=== PATIENT | female | born 2000 | race Caucasian/White ===

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

== ENCOUNTER → 2019-09-02 | Outpatient (CLI) | payer OTHER ==
--- NOTE | 2019-09-02 09:18 | MR ---
EXAMINATION TYPE: MR lumbar spine wo con DATE OF EXAM: 09/02/2019 9:02 AM COMPARISON: NONE HISTORY: Lower Back Pain into Left Thigh started in April Multiplanar, MultiSpin echo imaging of the lumbar spine was performed. L1-L2: Normal disc appearance without desiccation. No herniation, protrusion or disc bulging. No ca nal stenosis is present. Foramina are patent bilaterally. L2-L3: Normal disc appearance without desiccation. No herniation, protrusion or disc bulging. No ca nal stenosis is present. Foramina are patent bilaterally. L3-L4: Normal disc appearance without desiccation. No herniation, protrusion or disc bulging. No ca nal stenosis is present. Foramina are patent bilaterally. L4-L5: Normal disc appearance without desiccation. No herniation, protrusion or disc bulging. No ca nal stenosis is present. Foramina are patent bilaterally. L5-S1: Normal disc appearance without desiccation. No herniation, protrusion or disc bulging. No ca nal stenosis is present. Foramina are patent bilaterally. Lumbar segments are intact. No paraspinal masses are identified. Conus medullaris has a normal appe arance. IMPRESSION: 1. No distinct abnormality appreciated at this time.
== END | disposition home or self-care (01) ==
LOC: RADMRIMAIN 08:13
PROVIDERS: ATTEND Orthopaedic Surgery Orthopaedic Surgery of the Spine
DX: M54.5 Low back pain (principal); M41.9 Scoliosis, unspecified
CPT/HCPCS: 72148

== ENCOUNTER → 2019-09-02 | Outpatient (CLI) | payer OTHER ==
[2019-09-03 13:20] LABS: Pork IgE Class CLASS 0
[2019-09-03 13:21] LABS: Beef IgE <0.10 kU/L (<0.10); Beef IgE Class CLASS 0
[2019-09-03 13:22] LABS: Yeast Bakers/Brew IgE <0.10 kU/L (<0.10); Yeast Bakers/Brew IgE Class CLASS 0
[2019-09-03 13:24] LABS: Chicken IgE Class CLASS 0
[2019-09-03 13:25] LABS: Chocolate IgE Class CLASS 0
[2019-09-03 13:26] LABS: Latex IgE Class CLASS 0
[2019-09-03 13:27] LABS: Avocado Class CLASS 0; Banana IgE Class CLASS 0; Cow's Milk IgE Class CLASS 0; Egg White IgE <0.10 kU/L (<0.10); Hazelnut IgE <0.10 kU/L (<0.10); Hazelnut IgE Class CLASS 0; Kiwi IgE <0.10 kU/L (<0.10); Kiwi IgE Class CLASS 0; Peanut IgE <0.10 kU/L (<0.10); Potato IgE <0.10 kU/L (<0.10); Potato IgE Class CLASS 0; Soybean IgE <0.10 kU/L (<0.10)
== END | disposition home or self-care (01) ==
LOC: LABWHC1 07:43
PROVIDERS: ATTEND Otolaryngology
DX: L50.0 Allergic urticaria (principal)
CPT/HCPCS: 36415; 86003

== ENCOUNTER → 2021-09-24 | Outpatient (CLI) | payer OTHER ==
--- NOTE | 2021-09-24 17:03 | MR ---
EXAMINATION TYPE: MR knee RT wo con DATE OF EXAM: 09/24/2021 COMPARISON: None HISTORY: Right knee pain, locking, and swelling. Multiplanar multiecho imaging of the right knee with no contrast. The anterior and posterior cruciate ligaments are intact. The medial and lateral menisci appear fairl y normal. There is a tiny knee joint effusion. The collateral ligaments are intact. There is subcutan eous edema anterior to the knee. No fracture line seen. No evidence of focal bone destruction. IMPRESSION: There is subcutaneous edema around the knee. No evidence of ligament or meniscal tear. Tiny knee joint effusion
== END | disposition home or self-care (01) ==
LOC: RADMRIMAIN 07:31
PROVIDERS: ATTEND Orthopaedic Surgery
DX: M25.561 Pain in right knee (principal); M23.91 Unspecified internal derangement of right knee; M25.469 Effusion, unspecified knee

== ENCOUNTER 2022-12-13 11:48 | Inpatient (IN) | payer OTHER ==
[2022-12-13 12:48] LABS: Anisocytosis Slight; Basophils % (A) 0 %; Eosinophils # (A) 0.2 k/uL (0-0.7); Eosinophils % (A) 2 %; HCT 24.4 % (34.0-46.0); Hypochromasia Marked; Lymphocytes # (A) 1.9 k/uL (1.0-4.8); Lymphocytes % (A) 18 %; MCHC 26.8 g/dL (31.0-37.0); MCV 59.7 fL (80.0-100.0); Mean Platelet Volume 7.9; Microcytosis Marked; Monocytes # (A) 0.2 k/uL (0-1.0); Monocytes % (A) 2 %; Neutrophils # (A) 8.2 k/uL (1.3-7.7); Neutrophils % (A) 77 %; Platelet Count 442 k/uL (150-450); Poikilocytosis Slight; RBC 4.08 m/uL (3.80-5.40); RDW 18.6 % (11.5-15.5); WBC 10.7 k/uL (3.8-10.6)
[2022-12-13 13:02] LABS: ALT 18 U/L (4-34); AST 23 U/L (14-36); African American GFR (CKD) >90 (>60 ml/min/1.73 sqM); Albumin 4.4 g/dL (3.5-5.0); Alkaline Phosphatase 81 U/L (38-126); Anion Gap 13 mmol/L; Blood Urea Nitrogen 12 mg/dL (7-17); Calcium 9.4 mg/dL (8.4-10.2); Carbon Dioxide 21 mmol/L (22-30); Chloride 106 mmol/L (98-107); Glucose 133 mg/dL (74-99); Non-African American GFR(CKD) >90 (>60 ml/min/1.73 sqM); Sodium 140 mmol/L (137-145); Total Bilirubin 0.4 mg/dL (0.2-1.3); Total Protein 7.8 g/dL (6.3-8.2)
[2022-12-13 13:05] LABS: INR 1.1 (<1.2); Partial Thromboplastin Time 21.8 sec (22.0-30.0); Prothrombin Time 11.5 sec (10.0-12.5)
[2022-12-13 13:08] LABS: HGB 6.5 gm/dL (11.4-16.0)
[2022-12-13 13:32] LABS: Appearance,Urine Clear (Clear); Bilirubin,Urine Negative (Negative); Blood,Urine Large (Negative); Color,Urine Yellow; Glucose,Urine (UA) Negative (Negative); Ketones,Urine Negative (Negative); Leukocyte Esterase,Urine Negative (Negative); Mucus,Urine Rare /hpf; Nitrite,Urine Negative (Negative); Protein,Urine Trace (Negative); RBC,Urine 171 /hpf (0-5); Specific Gravity,Urine 1.021 (1.001-1.035); Squamous Epithelial Cell,Urine 1 /hpf (0-4); Urobilinogen,Urine <2.0 mg/dL (<2.0); WBC,Urine 2 /hpf (0-5)
--- NOTE | 2022-12-13 16:41 | ED ---
General Adult HPI - General Chief complaint: Recheck/Abnormal Lab/Rx Stated complaint: abnormal labs Time Seen by Provider: 12/13/22 15:38 Source: patient Mode of arrival: ambulatory Limitations: no limitations - History of Present Illness Initial comments: 22-year-old female presents to the ED with chief complaint of abnormal labs. Patient states that was establishing care receiving regular blood work. States was told had a hemoglobin of 5.9 and advised to have a redraw yesterday. Per patient, redraw yesterday showed a low hemoglobin again and was advised this morning to present to the ED for further evaluation. At this time, patient denies any lightheadedness or dizziness or having any symptoms. However notes that she has had intermittent episodes of lightheadedness especially with positional changes for the past few months but has just " not thought anything of it". No history of bleeding or clotting disorders. Eyes blood in the stool. Patient does note that she has irregular periods however denies heavy periods. No chest pain or shortness of breath. No other complaints. - Related Data Allergies Allergy/AdvReac Type Severity Reaction Status Date / Time amoxicillin [From Augmentin] AdvReac Rash/Hives Verified 12/13/22 12:13 clavulanic acid AdvReac Rash/Hives Verified 12/13/22 12:13 [From Augmentin] fluconazole [From Diflucan] AdvReac Nausea & Verified 12/13/22 12:13 Vomiting Review of Systems ROS Statement: Those systems with pertinent positive or pertinent negative responses have been documented in the HPI. ROS Other: All systems not noted in ROS Statement are negative. Past Medical History Additional Past Medical History / Comment(s): migraines, abnormal uterine bleeding History of Any Multi-Drug Resistant Organisms: None Reported Past Surgical History: No Surgical Hx Reported Past Psychological History: No Psychological Hx Reported Smoking Status: Never smoker Past Alcohol Use History: None Reported Past Drug Use History: None Reported General Exam Limitations: no limitations General appearance: alert, in no apparent distress Neck exam: Present: normal inspection Respiratory exam: Present: normal lung sounds bilaterally Cardiovascular Exam: Present: normal rhythm, tachycardia GI/Abdominal exam: Present: soft Extremities exam: Present: other (Exam chaperoned by Eula CHACON. No hemorrhoids n oted. No stool or gross blood noted.) Neurological exam: Present: alert, oriented X3 Skin exam: Present: warm, dry Course Vital Signs 12/13/22 12/13/22 12:13 13:15 Temperature 98.6 F 98.6 F Pulse Rate 133 H 133 H Respiratory 18 18 Rate Blood Pressure 109/68 109/68 O2 Sat by Pulse 99 99 Oximetry Medical Decision Making - Medical Decision Making Was pt. sent in by a medical professional or institution (, DARRYN, SPRING MACHINE OPERATOR, urgent care, hospital, or retirement...) When possible be specific @ -No Did you speak to anyone other than the patient for history (EMS, parent, family, police, friend...)? What history was obtained from this source @ -No Did you review nursing and triage notes (agree or disagree)? Why? @ -I reviewed and agree with nursing and triage notes Were old charts reviewed (outside hosp., previous admission, EMS record, old EKG, old radiological studies, urgent care reports/EKG's, retirement records)? Report findings @ -No old charts were reviewed Differential Diagnosis (chest pain, altered mental status, abdominal pain women, abdominal pain men, vaginal bleeding, weakness, fever, dyspnea, syncope, headache, dizziness, GI bleed, back pain, seizure, CVA, palpatations, mental health, musculoskeletal)? @ -Differential GI Bleed: Esophageal varices, aortoenteric fistula, Nguyen-Carmona, gastritis, peptic ulcer disease, diverticulosis, inflammatory bowel disease, hemorrhoids, fissure, colitis, malignancy, Meckels diverticulum, this is not meant to be an all- inclusive list. EKG interpreted by me (3pts min.). @ -Pending at this time. X-rays interpreted by me (1pt min.). @ -None done CT interpreted by me (1pt min.). @ -None done U/S interpreted by me (1pt. min.). @ -None done What testing was considered but not performed or refused? (CT, X-rays, U/S, labs)? Why? @ -None What meds were considered but not given or refused? Why? @ -None Did you discuss the management of the patient with other professionals (professionals i.e. DARRYN Juan, SPRING MACHINE OPERATOR, lab, RT, psych nurse, social security assessor, silviculture professor, teacher, artillery officer, case picker)? Give summary @ -Spoke to Dr. Sanchez, who accepts admission Was smoking cessation discussed for >3mins.? @ -No Was critical care preformed (if so, how long)? @ -No Were there social determinants of health that impacted care today? How? (Homelessness, low income, unemployed, alcoholism, drug addiction, transportation, low edu. Level, literacy, decrease access to med. care, [facility], rehab)? @ -No Was there de-escalation of care discussed even if they declined (Discuss DNR or withdrawal of care, Hospice)? DNR status @ -No What co-morbidities impacted this encounter? (DM, HTN, Smoking, COPD, CAD, Cancer, CVA, ARF, Chemo, Hep., AIDS, mental health diagnosis, sleep apnea, morbid obesity)? @ -None Was patient admitted / discharged? Hospital course, mention meds given and route, prescriptions, significant lab abnormalities, going to OR and other pertinent info. @ -Admission 42-year-old female presenting to the ED with abnormal labs with concern for anemia. Hemoglobin here shows anemia at 6.5. Otherwise, laboratory studies unremarkable. Patient is having some lightheadedness with positional changes however reports no other symptoms. Ordered a unit of packed red blood cells here in the ED. Patient will be admitted to observation with consults to GI due to anemia. Discussed plan of care with patient and family who are in agreement. Undiagnosed new problem with uncertain prognosis? @ -No Drug Therapy requiring intensive monitoring for toxicity (Heparin, Nitro, Insulin, Cardizem)? @ -No Were any procedures done? @ -No Diagnosis/symptom? @ -Anemia Acute, or Chronic, or Acute on Chronic? @ -Acute Uncomplicated (without systemic symptoms) or Complicated (systemic symptoms)? @ -Complicated Side effects of treatment? @ -No Exacerbation, Progression, or Severe Exacerbation? @ -No Poses a threat to life or bodily function? How? (Chest pain, USA, VT, pneumonia, PE, COPD, DKA, ARF, appy, cholecystitis, CVA, Diverticulitis, Homicidal, Suicidal, threat to staff... and all critical care pts) @ -Yes, significant anemia - Lab Data Result diagrams: 12/13/22 12:38 12/13/22 12:38 Lab Results 12/13/22 12/13/22 12/13/22 Range/Units 12:30 12:38 12:38 WBC 10.7 H (3.8-10.6) k/uL RBC 4.08 (3.80-5.40) m/uL Hgb 6.5 L* (11.4-16.0) gm/dL Hct 24.4 L (34.0-46.0) % MCV 59.7 L (80.0-100.0) fL MCH 16.0 L (25.0-35.0) pg MCHC 26.8 L (31.0-37.0) g/dL RDW 18.6 H (11.5-15.5) % Plt Count 442 (150-450) k/uL MPV 7.9 Neutrophils % 77 % Lymphocytes % 18 % Monocytes % 2 % Eosinophils % 2 % Basophils % 0 % Neutrophils # 8.2 H (1.3-7.7) k/uL Lymphocytes # 1.9 (1.0-4.8) k/uL Monocytes # 0.2 (0-1.0) k/uL Eosinophils # 0.2 (0-0.7) k/uL Basophils # 0.0 (0-0.2) k/uL Hypochromasia Marked Poikilocytosis Slight Anisocytosis Slight Microcytosis Marked PT 11.5 (10.0-12.5) sec INR 1.1 (<1.2) APTT 21.8 L (22.0-30.0) sec Sodium (137-145) mmol/L Potassium (3.5-5.1) mmol/L Chloride (98-107) mmol/L Carbon Dioxide (22-30) mmol/L Anion Gap mmol/L BUN (7-17) mg/dL Creatinine (0.52-1.04) mg/dL Est GFR (CKD-EPI)AfAm (>60 ml/min/1.73 sqM) Est GFR (CKD-EPI)NonAf (>60 ml/min/1.73 sqM) Glucose (74-99) mg/dL Calcium (8.4-10.2) mg/dL Total Bilirubin (0.2-1.3) mg/dL AST (14-36) U/L ALT (4-34) U/L Alkaline Phosphatase (38-126) U/L Total Protein (6.3-8.2) g/dL Albumin (3.5-5.0) g/dL Urine Color Urine Appearance (Clear) Urine pH (5.0-8.0) Ur Specific [place] (1.001-1.035) Urine Protein (Negative) Urine Glucose (UA) (Negative) Urine Ketones (Negative) Urine Blood (Negative) Urine Nitrite (Negative) Urine Bilirubin (Negative) Urine Urobilinogen (<2.0) mg/dL Ur Leukocyte Esterase (Negative) Urine RBC (0-5) /hpf Urine WBC (0-5) /hpf Ur Squamous Epith Cells (0-4) /hpf Urine Mucus (None) /hpf Urine HCG, Qual (Not Detectd) Stool Occult Blood (Negative) Blood Type A Positive Blood Type Confirm Blood Type Recheck No Previous Record Bld Type Recheck Status CABO Indicated Antibody Screen NEGATIVE Spec Expiration Date 12/16/2022 - 233712/13/22 12/13/22 12/13/22 Range/Units 12:38 12:52 13:04 WBC (3.8-10.6) k/uL RBC (3.80-5.40) m/uL Hgb (11.4-16.0) gm/dL Hct (34.0-46.0) % MCV (80.0-100.0) fL MCH (25.0-35.0) pg MCHC (31.0-37.0) g/dL RDW (11.5-15.5) % Plt Count (150-450) k/uL MPV Neutrophils % % Lymphocytes % % Monocytes % % Eosinophils % % Basophils % % Neutrophils # (1.3-7.7) k/uL Lymphocytes # (1.0-4.8) k/uL Monocytes # (0-1.0) k/uL Eosinophils # (0-0.7) k/uL Basophils # (0-0.2) k/uL Hypochromasia Poikilocytosis Anisocytosis Microcytosis PT (10.0-12.5) sec INR (<1.2) APTT (22.0-30.0) sec Sodium 140 (137-145) mmol/L Potassium 4.0 (3.5-5.1) mmol/L Chloride 106 (98-107) mmol/L Carbon Dioxide 21 L (22-30) mmol/L Anion Gap 13 mmol/L BUN 12 (7-17) mg/dL Creatinine 0.52 (0.52-1.04) mg/dL Est GFR (CKD-EPI)AfAm >90 (>60 ml/min/1.73 sqM) Est GFR (CKD-EPI)NonAf >90 (>60 ml/min/1.73 sqM) Glucose 133 H (74-99) mg/dL Calcium 9.4 (8.4-10.2) mg/dL Total Bilirubin 0.4 (0.2-1.3) mg/dL AST 23 (14-36) U/L ALT 18 (4-34) U/L Alkaline Phosphatase 81 (38-126) U/L Total Protein 7.8 (6.3-8.2) g/dL Albumin 4.4 (3.5-5.0) g/dL Urine Color Urine Appearance (Clear) Urine pH (5.0-8.0) Ur Specific [place] (1.001-1.035) Urine Protein (Negative) Urine Glucose (UA) (Negative) Urine Ketones (Negative) Urine Blood (Negative) Urine Nitrite (Negative) Urine Bilirubin (Negative) Urine Urobilinogen (<2.0) mg/dL Ur Leukocyte Esterase (Negative) Urine RBC (0-5) /hpf Urine WBC (0-5) /hpf Ur Squamous Epith Cells (0-4) /hpf Urine Mucus (None) /hpf Urine HCG, Qual Not Detected (Not Detectd) Stool Occult Blood (Negative) Blood Type Blood Type Confirm A Positive Blood Type Recheck Bld Type Recheck Status Antibody Screen Spec Expiration Date 12/13/22 12/13/22 Range/Units 13:04 16:13 WBC (3.8-10.6) k/uL RBC (3.80-5.40) m/uL Hgb (11.4-16.0) gm/dL Hct (34.0-46.0) % MCV (80.0-100.0) fL MCH (25.0-35.0) pg MCHC (31.0-37.0) g/dL RDW (11.5-15.5) % Plt Count (150-450) k/uL MPV Neutrophils % % Lymphocytes % % Monocytes % % Eosinophils % % Basophils % % Neutrophils # (1.3-7.7) k/uL Lymphocytes # (1.0-4.8) k/uL Monocytes # (0-1.0) k/uL Eosinophils # (0-0.7) k/uL Basophils # (0-0.2) k/uL Hypochromasia Poikilocytosis Anisocytosis Microcytosis PT (10.0-12.5) sec INR (<1.2) APTT (22.0-30.0) sec Sodium (137-145) mmol/L Potassium (3.5-5.1) mmol/L Chloride (98-107) mmol/L Carbon Dioxide (22-30) mmol/L Anion Gap mmol/L BUN (7-17) mg/dL Creatinine (0.52-1.04) mg/dL Est GFR (CKD-EPI)AfAm (>60 ml/min/1.73 sqM) Est GFR (CKD-EPI)NonAf (>60 ml/min/1.73 sqM) Glucose (74-99) mg/dL Calcium (8.4-10.2) mg/dL Total Bilirubin (0.2-1.3) mg/dL AST (14-36) U/L ALT (4-34) U/L Alkaline Phosphatase (38-126) U/L Total Protein (6.3-8.2) g/dL Albumin (3.5-5.0) g/dL Urine Color Yellow Urine Appearance Clear (Clear) Urine pH 6.0 (5.0-8.0) Ur Specific [place] 1.021 (1.001-1.035) Urine Protein Trace H (Negative) Urine Glucose (UA) Negative (Negative) Urine Ketones Negative (Negative) Urine Blood Large H (Negative) Urine Nitrite Negative (Negative) Urine Bilirubin Negative (Negative) Urine Urobilinogen <2.0 (<2.0) mg/dL Ur Leukocyte Esterase Negative (Negative) Urine RBC 171 H (0-5) /hpf Urine WBC 2 (0-5) /hpf Ur Squamous Epith Cells 1 (0-4) /hpf Urine Mucus Rare H (None) /hpf Urine HCG, Qual (Not Detectd) Stool Occult Blood Positive H (Negative) Blood Type Blood Type Confirm Blood Type Recheck Bld Type Recheck Status Antibody Screen Spec Expiration Date Disposition Clinical Impression: Anemia Disposition: ADMITTED IP TO THIS [facility] Condition: Good Referrals: Larissa Alejandre MD [Primary Care Provider] - 1-2 days Time of Disposition: 17:00
[2022-12-13] MEDS ORDERED: ACETAMINOPHEN TAB 325 MG TAB PO PRN (17:20)
[2022-12-13] MEDS ORDERED: ONDANSETRON 4 MG/2 ML VIAL IVP PRN (17:20)
[2022-12-13] MEDS ORDERED: NALOXONE 0.4 MG/ML 1 ML VIAL IV PRN (17:20)
[2022-12-13] MEDS ORDERED: HYDROmorphone 0.5 MG/0.5 ML SYRINGE IVP PRN (17:20)
[2022-12-13] MEDS ORDERED: SODIUM CHLORIDE 0.9% 1,000 ML IV STA (17:23)
[2022-12-13] MEDS: SODIUM CHLORIDE 0.9% 1,000 ML IV SCH (18:15)
--- NOTE | 2022-12-14 05:39 | HP ---
HISTORY AND PHYSICAL HISTORY OF PRESENT ILLNESS: A white female came to the hospital after she was found to have severely low hemoglobin of 5.9. She was 6.5 or 6.8 here. She does have lightheaded and dizziness with ambulation. She has had chronic fatigue and poor energy. ALLERGIES: Amoxicillin, Diflucan. PAST MEDICAL HISTORY: Allergies, asthma, migraine, abnormal uterine bleeding. REVIEW OF SYSTEMS: A 14-point review of systems otherwise negative. PHYSICAL EXAMINATION: VITAL SIGNS: Temp 98.6, pulse is 130s, respiratory rate 16 to 18, blood pressure 109/68, O2 sats 99%. HEENT: Normocephalic, atraumatic. CARDIOVASCULAR: S1, S2. Tachycardic. GI: Soft. ENDOCRINE: BMI is over 40. NEUROLOGIC: Cranial nerves intact. SKIN: Warm, dry, and intact. ASSESSMENT: Rule out gastrointestinal bleed. Monitor to get Hematology consult. Monitor iron stores. Tachycardia possibly due to severe anemia. She got a pack of red blood cells in the ER for 6.5 hemoglobin. We will check electrolytes and everything in the morning. Check echocardiogram secondary to tachycardia. Prognosis guarded. Please see further orders. MMODL / IJN: [id number] /
[2022-12-14] MEDS: SODIUM CHLORIDE 0.9% 1,000 ML IV SCH ×2 (06:00→16:22)
[2022-12-14 07:08] LABS: Anisocytosis Moderate; Basophils % (A) 0 %; Eosinophils # (A) 0.2 k/uL (0-0.7); Eosinophils % (A) 3 %; HCT 23.1 % (34.0-46.0); Hypochromasia Marked; Lymphocytes % (A) 23 %; MCH 17.4 pg (25.0-35.0); MCHC 27.9 g/dL (31.0-37.0); MCV 62.4 fL (80.0-100.0); Mean Platelet Volume 8.4; Microcytosis Marked; Monocytes # (A) 0.5 k/uL (0-1.0); Monocytes % (A) 5 %; Neutrophils # (A) 5.7 k/uL (1.3-7.7); Neutrophils % (A) 66 %; Platelet Count 380 k/uL (150-450); Poikilocytosis Moderate; RDW 20.4 % (11.5-15.5); WBC 8.5 k/uL (3.8-10.6)
[2022-12-14 07:17] LABS: HGB 6.4 gm/dL (11.4-16.0)
[2022-12-14 08:08] LABS: Polychromasia Present
[2022-12-14] MEDS: PANTOPRAZOLE 40 MG/10 ML VIAL IVP SCH (09:22)
--- NOTE | 2022-12-14 10:41 | P.CONS ---
History of Present Illness - Reason for Consult Consult date: 12/14/22 Anemia Requesting physician: Jorge A Ma - Chief Complaint Abnormal labs - History of Present Illness This is a pleasant 22-year-old female who presented to the emergency department directed by her PCP with concern for abnormal labs. Patient states that she was called and told that her hemoglobin came back at 5.8 and they told her to go to the emergency department for further evaluation. As part of her workup here she had a repeat CBC with a hemoglobin of 6.5, she was given 1 unit of blood. Patient denies any known history of anemia. States that she has not had blood work in over 3 years or seen a PCP. She is just now establishing due to irregular menses. She states that her menstrual cycle is very irregular, and it fluctuates between a normal flow to a light flow. She is currently on her menstrual cycle now which she states is very light. She is denying any noticeable wax stools or blood in her stool. She denies any history of abdominal pain, nausea, or vomiting. States she her grandmother is anemic and does require iron infusions. Patient herself has not required a blood transfusion in the past. She does report taking Motrin as needed for migraines, states it could be once or twice a week however not always weekly. Denies any anticoagulation and any past medical history. States that overall she is not dizzy, short of breath or weak. States she has noticed in the past that if she is bending over she may get dizzy or lightheaded. She denies any shortness of breath, chest pain, heart palpitations, abdominal pain, nausea or vomiting. Review of Systems REVIEW OF SYSTEMS: CARDIOPULMONARY: No chest pain or shortness of breath. Gastrointestinal: Denies any abdominal or epigastric pain. No GERD. No nausea or vomiting. No hematemesis, coffee-ground emesis. No rectal bleeding, or melena. GENITOURINARY: No dysuria or hematuria. MUSCULOSKELETAL: Reports normal range of motion., Joint pain. SKIN: No rashes. No jaundice. ENDOCRINE: No chills, fevers. No excessive weight gain or loss. No polydipsia or polyuria. PSYCHIATRIC: Unremarkable. NEUROLOGY: No change in mental status. Denies dizziness, headache. Does get occasional migraines. ENT: Vision unremarkable. CONSTITUTIONAL: No recent weight loss. No fever, chills, night sweats. Irregular menses. Past Medical History Additional Past Medical History / Comment(s): migraines, abnormal uterine bleeding History of Any Multi-Drug Resistant Organisms: None Reported Past Surgical History: Adenoidectomy, Tonsillectomy Past Psychological History: No Psychological Hx Reported Smoking Status: Never smoker Past Alcohol Use History: None Reported Past Drug Use History: None Reported Medications and Allergies Home Medications Medication Instructions Recorded Confirmed Type Loratadine [Claritin] 10 mg PO DAILY 12/13/22 12/13/22 History Allergies Allergy/AdvReac Type Severity Reaction Status Date / Time amoxicillin [From Augmentin] AdvReac Rash/Hives Verified 12/13/22 17:57 clavulanic acid AdvReac Rash/Hives Verified 12/13/22 17:57 [From Augmentin] fluconazole [From Diflucan] AdvReac Nausea & Verified 12/13/22 17:57 Vomiting Physical Exam Vitals: Vital Signs Temp Pulse Pulse Resp BP BP Pulse Ox 12/14/22 07:00 98.1 F 87 16 125/74 98 12/14/22 02:53 98.6 F 89 16 123/71 100 12/13/22 21:39 98.5 F 95 16 127/53 100 12/13/22 20:34 98.2 F 101 H 16 124/74 12/13/22 20:00 16 12/13/22 18:55 98.5 F 98 18 125/79 100 12/13/22 18:25 99.3 F 97 18 121/67 100 12/13/22 18:11 100.5 F H 103 H 18 131/81 97 12/13/22 18:01 99.5 F 100 18 122/82 100 12/13/22 13:15 98.6 F 133 H 18 109/68 99 12/13/22 12:13 98.6 F 133 H 18 109/68 99 Intake and Output 12/13/22 12/14/22 12/14/22 22:59 06:59 14:59 Intake Total 310 Balance 310 Intake: Blood Product 310 Rc As-1 Unit 310 [id number] Other: Voiding Method Toilet # Voids 1 3 Weight 131.542 kg General appearance: The patient is alert, oriented, appears in no acute distress. Obese. HET: Head is normocephalic and atraumatic. Pupils are equal and reactive. Neck: Supple. Heart: Regular. Lungs: Equal expansion, normal respiratory effort. Abdomen: Soft, nontender, nondistended. Extremities: Normal skin color and turgor. Neurological: No focal deficits. Strength and sensation are grossly intact. Results CBC & Chem 7: 12/14/22 05:30 12/14/22 07:32 Labs: Abnormal Lab Results - Last 24 Hours (Table) 12/13/22 12/13/22 12/13/22 Range/Units 12:30 12:38 12:38 WBC 10.7 H (3.8-10.6) k/uL RBC (3.80-5.40) m/uL Hgb 6.5 L* (11.4-16.0) gm/dL Hct 24.4 L (34.0-46.0) % MCV 59.7 L (80.0-100.0) fL MCH 16.0 L (25.0-35.0) pg MCHC 26.8 L (31.0-37.0) g/dL RDW 18.6 H (11.5-15.5) % Neutrophils # 8.2 H (1.3-7.7) k/uL APTT 21.8 L (22.0-30.0) sec Carbon Dioxide (22-30) mmol/L Glucose (74-99) mg/dL Urine Protein (Negative) Urine Blood (Negative) Urine RBC (0-5) /hpf Urine Mucus (None) /hpf Stool Occult Blood (Negative) Crossmatch See Detail 12/13/22 12/13/22 12/13/22 Range/Units 12:38 13:04 16:13 WBC (3.8-10.6) k/uL RBC (3.80-5.40) m/uL Hgb (11.4-16.0) gm/dL Hct (34.0-46.0) % MCV (80.0-100.0) fL MCH (25.0-35.0) pg MCHC (31.0-37.0) g/dL RDW (11.5-15.5) % Neutrophils # (1.3-7.7) k/uL APTT (22.0-30.0) sec Carbon Dioxide 21 L (22-30) mmol/L Glucose 133 H (74-99) mg/dL Urine Protein Trace H (Negative) Urine Blood Large H (Negative) Urine RBC 171 H (0-5) /hpf Urine Mucus Rare H (None) /hpf Stool Occult Blood Positive H (Negative) Crossmatch 12/14/22 Range/Units 05:30 WBC (3.8-10.6) k/uL RBC 3.70 L (3.80-5.40) m/uL Hgb 6.4 L* (11.4-16.0) gm/dL Hct 23.1 L (34.0-46.0) % MCV 62.4 L (80.0-100.0) fL MCH 17.4 L (25.0-35.0) pg MCHC 27.9 L (31.0-37.0) g/dL RDW 20.4 H (11.5-15.5) % Neutrophils # (1.3-7.7) k/uL APTT (22.0-30.0) sec Carbon Dioxide (22-30) mmol/L Glucose (74-99) mg/dL Urine Protein (Negative) Urine Blood (Negative) Urine RBC (0-5) /hpf Urine Mucus (None) /hpf Stool Occult Blood (Negative) Crossmatch Assessment and Plan (1) Microcytic hypochromic anemia Narrative/Plan: This is a 22-year-old female presenting with abnormal labs. She was noted on outpatient labs to be anemic with a low hemoglobin of 5.8, patient presented to the emergency department again with the hemoglobin of 6.5 with evidence of a microcytic anemia. Denies any previous known history of anemia requiring blood transfusions. She denies any blood in her stool or black stool, no complaints of acid reflux, epigastric pain, nausea, or vomiting. Patient does report an irregular menstrual cycle and that is why she is starting to establish with a PCP and has no appointment with the director law enforcement coming up in a couple weeks. States that her menstrual cycle has been very irregular most of her life she denies any heavy flow. But does state that she may be on her cycle for a few days then off for a week or so and then back on. She states her flow is moderate to light, sometimes heavy. Unclear etiology of anemia at this time. Due to her age and irregular menstrual radha likely anemia related to her menses however cannot rule out GI source of blood loss. Patient is now requiring 2 units of blood. Would recommend proceeding with EGD and colonoscopy as part of her workup. Also consider possible outpatient hematology workup. Recommend outpatient SECURITY EXPERT follow-up. Current Visit: Yes Status: Acute Code(s): D50.9 - IRON DEFICIENCY ANEMIA, UNSPECIFIED SNOMED Code(s): 84163027 (2) Irregular menstrual cycle Current Visit: Yes Status: Acute Code(s): N92.6 - IRREGULAR MENSTRUATION, UNSPECIFIED SNOMED Code(s): 55594852 (3) Obesity Current Visit: Yes Status: Acute Code(s): E66.9 - OBESITY, UNSPECIFIED SNOMED Code(s): 854364754 Plan: 1. Continue symptomatic and supportive care 2. Transfuse 1 unit of blood 3. Repeat CBC this afternoon 4. Anemia panel ordered 5. Daily CBC, transfuse for hemoglobin less than 7 6. Clear liquid diet 7. Avoid NSAIDs for now 8. Protonix 40 mg daily for GI prophylaxis 9. Tentatively plan for EGD colonoscopy tomorrow, patient will start bowel prep this evening 10. Recommend outpatient SECURITY EXPERT consultation 11. Consider outpatient hematology consultation Thank you for this Consultation, we will continue to follow. Dr. Akbar Armstrong I agree with the dictator's note, documented as a scribe by Arin Momin.
[2022-12-14 11:19] LABS: ALT 12 U/L (8-44); AST 13 U/L (13-35); Albumin 3.7 d/dL (3.8-4.9); Albumin/Globulin Ratio 1.42 Ratio (1.60-3.17); Alkaline Phosphatase 76 U/L (41-126); Blood Urea Nitrogen 8.8 mg/dL (9.0-27.0); Calcium 8.8 mg/dL (8.7-10.3); Carbon Dioxide 23.8 mmol/L (21.6-31.8); Chloride 107 mmol/L (96-109); Globulin 2.6 d/dL (1.6-3.3); Glucose 97 mg/dL (70-110); Potassium 4.8 mmol/L (3.5-5.5); Sodium 139 mmol/L (135-145); Total Bilirubin 0.5 mg/dL (0.3-1.2); Total Protein 6.3 d/dL (6.2-8.2)
[2022-12-14 11:48] LABS: % Iron Saturation 2.97 (12.00-45.00); Ferritin 6.3 ng/mL (10.0-291.0)
[2022-12-14 16:04] LABS: Anisocytosis Moderate; HCT 22.8 % (34.0-46.0); Hypochromasia Marked; MCH 18.6 pg (25.0-35.0); MCHC 29.8 g/dL (31.0-37.0); MCV 62.4 fL (80.0-100.0); Microcytosis Marked; Platelet Count 379 k/uL (150-450); Poikilocytosis Marked; RBC 3.66 m/uL (3.80-5.40)
[2022-12-14 16:34] LABS: HGB 6.8 gm/dL (11.4-16.0)
[2022-12-14] MEDS ORDERED: PEG 3350 (236 GM/BTL) + LYTES 4,000 ML BOTTLE PO ONE (17:00)
[2022-12-14 23:48] VITALS: RESP 16
[2022-12-15] MEDS: SODIUM CHLORIDE 0.9% 1,000 ML IV SCH ×2 (02:54→07:55)
[2022-12-15] MEDS: PANTOPRAZOLE 40 MG/10 ML VIAL IVP SCH (07:54)
[2022-12-15 09:02] LABS: HGB 7.6 d/dL (12.0-15.0); MCH 18.6 pg (27.0-32.0); MCHC 28.1 d/dL (32.0-37.0); MCV 66.2 FL (80.0-97.0); Mean Platelet Volume 9.1 FL (9.5-12.2); NRBC Per 100 WBC 0 X 10*3/uL (0.00-0.01); Platelet Count 400 X 10*3/uL (140-440); RBC 4.08 X 10*6/uL (4.10-5.20); RDW 26.2 % (11.5-14.5); WBC 10.33 X 10*3/uL (4.50-10.00)
[2022-12-15] MEDS ORDERED: SODIUM FERRIC GLUCONAT-SUCROSE 125 MG in SODIUM CHLORIDE 0.9% 100 ML IVPB SCH (12:00)
--- NOTE | 2022-12-15 15:18 | P.GSCN ---
History of Present Illness Consult date: 12/15/22 History of present illness: CHIEF COMPLAINT: anemia HISTORY OF PRESENT ILLNESS: This is a 22-year-old female who came into the hospital due to abnormal outpatient labs. She will was told that her hemoglobin was 5.8 and to proceed to the emergency room. Hemoglobin care 6.5. She did receive a unit of blood. She does have a known history of anemia. Patient reports having irregular menses. At times the flow can be heavy. Patient is currently on her menstrual cycle now. She denies any blood in her stools or black stools. Denies any abdominal pain. Patient does use Motrin occasionally. Denies any daily NSAID use. Denies taking any blood thinners. Patient seen by GI service. They're proceeding with EGD and colonoscopy today. PAST MEDICAL HISTORY: migraines, abnormal uterine bleeding PAST SURGICAL HISTORY: Adenoidectomy, Tonsillectomy MEDICATIONS: See below ALLERGIES: See below SOCIAL HISTORY: No illicit drug use. REVIEW OF SYSTEMS: CONSTITUTIONAL: Denies fever or chills. HEENT: Denies blurred vision, vision changes, or eye pain. Denies hemoptysis CARDIOVASCULAR: Denies chest pain or pressure. RESPIRATORY: No shortness of breath. GASTROINTESTINAL: See HPI for pertinent findings HEMATOLOGIC: Denies bleeding disorders. GENITOURINARY: Denies any blood in urine or increased urinary frequency. SKIN: Denies pruitis. Denies rash. PHYSICAL EXAM: VITAL SIGNS: Reviewed GENERAL: Well-developed in no acute distress. ABDOMEN: Soft. Nondistended. Nontender NEUROLOGIC: Alert and oriented. Cranial nerves II through XII grossly intact. LABORATORY DATA: WBC 10.33 Hgb 6.5 up to 7.6 Sodium 139 potassium 4.8 creatinine 0.5 Stool for occult blood positive but patient is on her menses IMAGING: ASSESSMENT: 1. Microcytic anemia PLAN: -Patient scheduled for EGD and colonoscopy with GI service today -Continue supportive care -Continue to monitor hemoglobin -Continue to transfuse as needed -Recommend outpatient follow-up with ACCOUNTING TEACHER service -Surgical service will remain on standby Physician Supervisor [employer] note has been reviewed by physician. Signing provider agrees with the documented findings, assessment, and plan of care. Past Medical History Additional Past Medical History / Comment(s): migraines, abnormal uterine bleeding History of Any Multi-Drug Resistant Organisms: None Reported Past Surgical History: Adenoidectomy, Tonsillectomy Past Psychological History: No Psychological Hx Reported Smoking Status: Never smoker Past Alcohol Use History: None Reported Past Drug Use History: None Reported Medications and Allergies Home Medications Medication Instructions Recorded Confirmed Type Loratadine [Claritin] 10 mg PO DAILY 12/13/22 12/13/22 History Allergies Allergy/AdvReac Type Severity Reaction Status Date / Time amoxicillin [From Augmentin] AdvReac Rash/Hives Verified 12/13/22 17:57 clavulanic acid AdvReac Rash/Hives Verified 12/13/22 17:57 [From Augmentin] fluconazole [From Diflucan] AdvReac Nausea & Verified 12/13/22 17:57 Vomiting Surgical - Exam Vital Signs Temp Pulse Resp BP Pulse Ox 98.6 F 133 H 18 109/68 99 12/13/22 12:13 12/13/22 12:13 12/13/22 12:13 12/13/22 12:13 12/13/22 12:13 Results - Labs 12/15/22 05:43 12/14/22 07:32 Abnormal Lab Results - Last 24 Hours (Table) 12/13/22 12/14/22 12/15/22 Range/Units 12:30 15:24 05:43 WBC 10.33 H (4.50-10.00) X 10*3/uL RBC 3.66 L 4.08 L (3.80-5.40) m/uL Hgb 6.8 L* 7.6 L (11.4-16.0) gm/dL Hct 22.8 L 27.0 L (34.0-46.0) % MCV 62.4 L 66.2 L (80.0-100.0) fL MCH 18.6 L 18.6 L (25.0-35.0) pg MCHC 29.8 L 28.1 L (31.0-37.0) g/dL RDW 22.0 H 26.2 H (11.5-15.5) % MPV 9.1 L (9.5-12.2) FL Crossmatch See Detail
[2022-12-15] MEDS ORDERED: IV FLUID CONTINUATION 1,000 ML IV ONE ×2 (15:38)
[2022-12-15] MEDS ORDERED: PROPOFOL 10 MG/ML 20 ML VIAL IV ONE (15:45)
[2022-12-15] MEDS ORDERED: MIDAZOLAM 2 MG/2 ML VIAL ONE (15:45)
[2022-12-15] MEDS ORDERED: LIDOCAINE 1% INJ 10MG/ML (20 ML MDV) ONE (15:45)
[2022-12-15] MEDS ORDERED: fentaNYL (PF) 50 MCG/ML 2 ML AMP ONE (15:45)
[2022-12-15] MEDS ORDERED: ONDANSETRON 4 MG/2 ML VIAL ONE (15:45)
--- NOTE | 2022-12-15 16:02 | P.PCN ---
Date of Procedure: 12/15/22 Procedure(s) Performed: Brief history: Patient is a pleasant 22-year-old white female scheduled for an elective upper endoscopy as well as colonoscopy as a part of evaluation of I deficiency anemia. Patient was admitted hospital with a hemoglobin of 6.4 g/dL requiring 2 units of the obesity transition. Denies any menorrhagia. She does have irregular periods. No abdominal pain, nausea vomiting or rectal bleeding. Procedure performed: Esophagogastroduodenoscopy with biopsy Colonoscopy Preoperative diagnosis: Severe symptomatic iron deficiency anemia Anesthesia: MAC Procedure: After informed consent was obtained from the patient was brought into the endoscopy unit and IV sedation was administered by anesthesia under continuous monitoring. Initially upper endoscopy was done. The Olympus GF 160 video endoscope was inserted inserted into the mouth and esophagus intubated without any difficulty and was gradually advanced into the stomach and duodenum and carefully examined. The bulb and second part of the duodenum appeared normal. Biopsies were done from the duodenum to rule out celiac disease. The scope was then withdrawn into the stomach adequately insufflated with air and upon careful examination the antrum and body, cardia and fundus appeared normal. The scope was then withdrawn into the esophagus. The GE junction was located at 40 cm to the incisors. It appeared regular with no erythema erosions or ulcerations. Rest of the esophagus appeared normal. Patient tolerated the procedure well. At this time the patient continued to remain sedation. Initial digital rectal examination was normal. Olympus CF 160 video colonoscope was then inserted into the rectum and gradually advanced to the cecum without any difficulty. Careful examination was performed as the scope was gradually being withdrawn. The prep was excellent. The cecum, ascending colon, transverse colon, descending colon, sigmoid colon and rectum appeared normal. Retroflexion was performed in the rectum and no lesions were noted. Patient tolerated the procedure well. Impression: 1. Upper endoscopy was within normal limits with no evidence of esophagitis or peptic ulcer disease. Status post duodenal biopsies to rule out celiac disease. 2. Colonoscopy was within normal limits with no evidence of colorectal neoplasia Recommendations: Findings of this examination were discussed with the patient as well as her family. She was advised to follow with the biopsy results. Advised to continue with iron supplements twice daily and monitor CBC daily. Regular diet. She can be discharged home today. Recommend DECAY CONTROL OPERATOR consultation an outpatient basis for irregular menstrual cycles.
[2022-12-15 17:37] VITALS: BP 105/66; PULSE 93; TEMP 98
--- NOTE | 2022-12-16 11:57 | P.CONS ---
History of Present Illness - Reason for Consult Consult date: 12/15/22 anemia Requesting physician: Devaughn Sanchez - Chief Complaint abnormal labs - History of Present Illness Patient is a 22-year-old female with no significant medical history. Patient had established care with a PCP and routine labs found her to have a hemoglobin of 5.9 and was sent to the emergency room for further evaluation. Upon admission hemoglobin was noted at 6.4 and has subsequently received 3 units of packed red blood cells. Iron studies revealed iron saturation 2.9%, ferritin 6.3. Folate 11.7. Today hemoglobin is 7.6. Patient does report history of irregular menstruation that can be heavy at times, and can last up to 1 month with clotting. Patient denies history of GI surgeries. She is not on any blood thinners, but does use NSAIDs intermittently for migraines and sciatic pain. Denies melena and blood in stool. Patient reports she experiences intermittent mild dizziness with positional changes and fatigue. Patient denies previous h istory of anemia but has not followed up with a PCP in the last 3 to 4 years. Patient has been referred to [facility] but has yet to have a follow-up appointment. She reports she was previously on oral contraceptives for irregular menstruation but did not have any improvement in symptoms. She is currently not on any control. Patient is scheduled today for upper and lower endoscopies with GI. At today's visit patient is reporting feeling improved. Denies abdominal pain. Denies any rectal bleeding and melena. Patient did have a positive stool occult on admission but reports she is currently menstruating. Review of Systems 10 point ROS is negative except as stated in the HPI Past Medical History Additional Past Medical History / Comment(s): migraines, abnormal uterine bleeding History of Any Multi-Drug Resistant Organisms: None Reported Past Surgical History: Adenoidectomy, Tonsillectomy Past Psychological History: No Psychological Hx Reported Smoking Status: Never smoker Past Alcohol Use History: None Reported Past Drug Use History: None Reported Medications and Allergies Home Medications Medication Instructions Recorded Confirmed Type Loratadine [Claritin] 10 mg PO DAILY 12/13/22 12/13/22 History Allergies Allergy/AdvReac Type Severity Reaction Status Date / Time amoxicillin [From Augmentin] AdvReac Rash/Hives Verified 12/13/22 17:57 clavulanic acid AdvReac Rash/Hives Verified 12/13/22 17:57 [From Augmentin] fluconazole [From Diflucan] AdvReac Nausea & Verified 12/13/22 17:57 Vomiting Physical Exam Vitals: Vital Signs Temp Pulse Pulse Resp BP BP BP 12/15/22 08:00 98.1 F 87 16 113/68 12/15/22 03:01 97.6 F 82 16 124/65 12/15/22 02:19 97.6 F 82 16 124/65 12/14/22 23:52 98.5 F 82 16 117/69 12/14/22 23:40 98.5 F 80 16 119/70 12/14/22 23:32 98.2 F 85 16 119/77 12/14/22 23:24 97.6 F 97 17 121/77 12/14/22 20:00 98.5 F 60 16 124/61 12/14/22 14:54 97.8 F 84 16 124/76 12/14/22 14:26 98.4 F 88 15 114/68 Pulse Ox 12/15/22 08:00 100 12/15/22 03:01 100 12/15/22 02:19 100 12/14/22 23:52 100 12/14/22 23:40 100 12/14/22 23:32 100 12/14/22 23:24 100 12/14/22 20:00 99 12/14/22 14:54 100 12/14/22 14:26 97 Intake and Output 12/14/22 12/15/22 12/15/22 22:59 06:59 14:59 Intake Total 310 Balance 310 Intake: Blood Product 310 Rc As-1 Unit 310 [id number] Other: Voiding Method Toilet Toilet # Voids 2 3 # Bowel Movements 2 4 - Constitutional General appearance: no acute distress, obese - EENT Eyes: anicteric sclerae, EOMI ENT: hearing grossly normal - Respiratory Respiratory: bilateral: CTA - Cardiovascular Rhythm: regular Heart sounds: normal: S1, S2 - Gastrointestinal General gastrointestinal: soft, no tenderness - Integumentary Integumentary: pale - Neurologic Neurologic: CNII-XII intact - Musculoskeletal Musculoskeletal: strength equal bilaterally - Psychiatric Psychiatric: A&O x's 3, appropriate affect, intact judgment & insight Results CBC & Chem 7: 12/15/22 05:43 12/14/22 07:32 Labs: Abnormal Lab Results - Last 24 Hours (Table) 12/13/22 12/13/22 12/14/22 Range/Units 12:28 12:30 07:32 WBC (4.50-10.00) X 10*3/uL RBC (3.80-5.40) m/uL Hgb (11.4-16.0) gm/dL Hct (34.0-46.0) % MCV (80.0-100.0) fL MCH (25.0-35.0) pg MCHC (31.0-37.0) g/dL RDW (11.5-15.5) % MPV (9.5-12.2) FL BUN 8.8 L (9.0-27.0) mg/dL Creatinine 0.5 L (0.6-1.5) mg/dL Iron 14 L (50-170) UG/DL TIBC 472 H (228-460) UG/DL % Saturation 2.97 L (12.00-45.00) Ferritin 6.3 L (10.0-291.0) ng/mL Albumin 3.7 L (3.8-4.9) d/dL Albumin/Globulin Ratio 1.42 L (1.60-3.17) Ratio Crossmatch See Detail 12/14/22 12/15/22 Range/Units 15:24 05:43 WBC 10.33 H (4.50-10.00) X 10*3/uL RBC 3.66 L 4.08 L (3.80-5.40) m/uL Hgb 6.8 L* 7.6 L (11.4-16.0) gm/dL Hct 22.8 L 27.0 L (34.0-46.0) % MCV 62.4 L 66.2 L (80.0-100.0) fL MCH 18.6 L 18.6 L (25.0-35.0) pg MCHC 29.8 L 28.1 L (31.0-37.0) g/dL RDW 22.0 H 26.2 H (11.5-15.5) % MPV 9.1 L (9.5-12.2) FL BUN (9.0-27.0) mg/dL Creatinine (0.6-1.5) mg/dL Iron (50-170) UG/DL TIBC (228-460) UG/DL % Saturation (12.00-45.00) Ferritin (10.0-291.0) ng/mL Albumin (3.8-4.9) d/dL Albumin/Globulin Ratio (1.60-3.17) Ratio Crossmatch Assessment and Plan (1) Anemia Status: Acute Priority: High Code(s): D64.9 - ANEMIA, UNSPECIFIED SNOMED Code(s): 254369706 (2) Irregular menstrual cycle Status: Acute Priority: High Code(s): N92.6 - IRREGULAR MENSTRUATION, UNSPECIFIED SNOMED Code(s): 65735576 Plan: Anemia: -No known hx of anemia. Reports history of irregular menstruation that can be heavy at times, and can last up to 1 month with clotting. Patient denies history of GI surgeries. She is not on any blood thinners, but does use NSAIDs intermittently for migraines and sciatic pain. Denies any rectal bleeding and melena. Patient did have a positive stool occult on admission but reports she is currently menstruating -Upon admission hemoglobin was noted at 6.4 and has subsequently received 3 units of packed red blood cells. Iron studies revealed iron saturation 2.9%, ferritin 6.3. Folate 11.7. Will order Vitamin B12 -Parenteral iron ordered -Patient is scheduled today for upper and lower endoscopies with GI -Recommend outpt f/u with [facility] -Will schedule outpt F[facility]heme infusions and 4 week f/u to recheck iron studies. Pt can continue on oral iron if tolerated -Please transfuse for hemoglobin less than 7 or if symptomatic. We will continue to monitor Patient updated on POC and is agreeable attests: I seen and examined patient, performed H&P, developed impression and plan of care. Discussed with dictator. Agree with documentation, dictated as a scribe
== END 2022-12-15 18:44 | disposition home or self-care (01) | DRG 812 ==
LOC: EC 11:48 → 6NMEDSUR 16:24 → OBSVTOIN 12-14 11:20
PROVIDERS: ADMIT Family Medicine; ATTEND Family Medicine
PROC: 30233N1 Transfusion of Nonautologous Red Blood Cells into Peripheral Vein, Percutaneous Approach (ICD-10-PCS; 2022-12-14)
PROC: 0DJD8ZZ Inspection of Lower Intestinal Tract, Via Natural or Artificial Opening Endoscopic (ICD-10-PCS; principal; 2022-12-15 15:15)
PROC: 0DB98ZX Excision of Duodenum, Via Natural or Artificial Opening Endoscopic, Diagnostic (ICD-10-PCS; 2022-12-15 15:15)
DX: D50.9 Iron deficiency anemia, unspecified (principal); Z68.43 Body mass index [BMI] 50.0-59.9, adult; E66.9 Obesity, unspecified; G43.909 Migraine, unspecified, not intractable, without status migrainosus; M54.30 Sciatica, unspecified side; N92.6 Irregular menstruation, unspecified; R53.82 Chronic fatigue, unspecified; Z88.0 Allergy status to penicillin
CPT/HCPCS: 36415; 36430; 43239; 45378; 80053; 81001; 81025; 82272; 82607; 82728; 82746; 83540; 83550; 85025; 85027; 85379; 85610; 85730; 86850; 86900; 86901; 86920; 93005; 99284